=== PATIENT | female | born 1980 | race African-American/Black ===

== ENCOUNTER 2016-10-24 09:59 | Emergency (ER) | payer OTHER ==
[~2016-10-24] VITALS: Ht 149.9 cm; Wt 113.9 kg
[~2016-10-24 09:59] MED LIST: BLM PO; DEPO-PROVER150 MG/ML IM; KEFLEX500 MG PO; PERCOCET 325 MG1 TA2 PO
[2016-10-24 12:57] LABS: ABSOLUTE BASOPHIL COUNT 0.1 /CUMM (0.0-0.2); ABSOLUTE EOSINOPHIL COUNT 0.1 /CUMM (0.0-0.7); ABSOLUTE GRANULOCYTE CT 8.3 /CUMM (1.4-6.5); ABSOLUTE LYMPH COUNT 2.7 /CUMM (1.2-3.4); ABSOLUTE MONOCYTE COUNT 1.1 /CUMM (0.10-0.60); BASOPHIL % 0.6 % (0.0-2.0); EOSINOPHIL % 0.5 % (0-5); GRANULOCYTE % 67.9 % (42.2-75.2); HEMATOCRIT 40.7 % (37-47); MEAN CORPUSCULAR HGB 26.8 PG (27.0-31.0); MEAN CORPUSCULAR HGB CONC 32.5 G/DL (33.0-37.0); MEAN CORPUSCULAR VOLUME 82.4 FL (81.0-99.0); PLATELET COUNT 376 /CUMM (130-400); RBC DISTRIBUTION WIDTH 14.1 % (11.5-14.5); RED BLOOD CELL CT 4.95 /CUMM (4.20-5.40); WHITE BLOOD CELL COUNT 12.2 /CUMM (4.8-10.8)
--- NOTE | 2016-10-24 12:58 | ED GI/GU/ABDOMINAL COMPLAINT ---
History of Present Illness General Chief Complaint: General Adult Stated Complaint: CONSTIPATION X4DAYS Source: patient Exam Limitations: no limitations Vital Signs & Intake/Output Vital Signs & Intake/Output Vital Signs Date Time Temp Pulse Resp B/P Pulse O2 O2 Flow FiO2 Ox Delivery Rate 10/24 1942 98.1 72 18 136/72 98 Room Air 10/24 1723 97.7 86 18 137/78 99 10/24 1014 96.4 108 18 122/84 99 Room Air Allergies Coded Allergies: NO KNOWN ALLERGIES (NO) (02/26/12) Reconcile Medications No Known Home Medications Triage Note: 35 Y/O FEMALE C/O CONSTIPATION X 4 DAYS; HAS GASTRIC BYPASS SURGERY 3 WEEKS AGO AND PT STOPPED TAKING PAIN MEDICATION APPROX 1 WEEK AGO; HAS BEEN TAKING STOOL SOFTENERS AND MIRALAX (YESTERDAY) WITH NO RELIEF. STATES SHE FEELS THE STOOL BUT CANNOT PUSH IT OUT. DENIES URINARY SYMPTOMS. C/O "DISCOMFORT" Triage Nurses Notes Reviewed? yes ? n Is pt currently ? No Onset: Abrupt Duration: day(s): (3-4), constant, getting worse Timing: recent history Location: generalized abdomen Radiation: no radiation No Modifying Factors: none HPI: 35-year-old female comes into emergency room for further evaluation of abdominal pain. Patient reports that 2 weeks ago she had a gastric bypass surgery done by Dr. Rodriguez out of [place]. Patient reports that she's been having some constipation issues for the past week and increased pain over the past few days. Some associated nausea but denies any vomiting. Patient reports that she had a complete gastric bypass. Denies any other associated symptoms. Patient reports that she was straining to go to the bathroom the other day noticed some bright red blood in the stool. (MYRIMA GUILLERMO) Past History Travel History Traveled to [place] past 21 day No Medical History Any Pertinent Medical History? see below for history Neurological: NONE EENT: NONE Cardiovascular: NONE Respiratory: NONE Gastrointestinal: GERD Hepatic: NONE Renal: NONE Musculoskeletal: NONE Psychiatric: NONE Endocrine: obesity Blood Disorders: anemia Cancer(s): NONE BILINGUAL TEACHER AIDE/Reproductive: NONE Surgical History Surgical History: cholecystectomy, R CARPAL TUNNEL Psychosocial History Who do you live with Brother What is your primary language Congolese Tobacco Use: Quit >30 days ago Family History Hx Contributory? No (MYRIAM GUILLERMO) Review of Systems Review of Systems Constitutional: Reports: no symptoms. EENTM: Reports: no symptoms. Respiratory: Reports: no symptoms. Cardiovascular: Reports: no symptoms. GI: Reports: see HPI. Genitourinary: Reports: no symptoms. Musculoskeletal: Reports: no symptoms. Skin: Reports: no symptoms. Neurological/Psychological: Reports: no symptoms. Hematologic/Endocrine: Reports: no symptoms. Immunologic/Allergic: Reports: no symptoms. All Other Systems: Reviewed and Negative (MYRIAM GUILLERMO) Physical Exam Physical Exam General Appearance: well developed/nourished, no apparent distress, alert, awake Head: atraumatic, normal appearance Eyes: Bilateral: normal appearance, EOMI. Ears, Nose, Throat, Mouth: hearing grossly normal, moist mucous membrane Neck: normal inspection, full range of motion Respiratory: normal breath sounds, no respiratory distress Cardiovascular: regular rate/rhythm Gastrointestinal: soft, tenderness Back: normal inspection Extremities: normal range of motion Neurologic/Psych: awake, alert, oriented x 3, normal gait, normal mood/affect Skin: intact, normal color Core Measures ACS in differential dx? No Severe Sepsis Present: No Septic Shock Present: No (MYRIAM GUILLERMO) Progress Differential Diagnosis: AAA, appendicitis, biliary colic, bowel obstruction, colon cancer, cholecystitis, ectopic , pancreatitis, peptic ulcer, PUD/ GERD, perforated viscous, threatened AB, internal hernia, necrotic bowel, Plan of Care: Orders Procedure Date/time Status Enema 10/24 1452 Active Add-on Test (ER Only) 10/24 1419 Active HUMAN BETA HCG SCREEN 10/24 1315 Complete URINE 10/24 1203 Complete URINALYSIS 10/24 1203 Complete LACTIC ACID 10/24 1203 Complete COMPREHENSIVE METABOLIC PANEL 10/24 1203 Complete CBC WITHOUT DIFFERENTIAL 10/24 1203 Complete Laboratory Tests 10/24/16 1900: Urine Color YEL, Urine Clarity CLEAR, Urine pH 6.0, Ur Specific [place] 1.025, Urine Protein 30 H, Urine Ketones >=80, Urine Nitrite NEG, Urine Bilirubin NEG@ ICTO, Urine Urobilinogen 1.0, Ur Leukocyte Esterase NEG, Ur Microscopic SEDIMENT EXAMINED, Urine RBC RARE, Urine WBC 5-10 H, Ur Epithelial Cells MANY H, Urine Mucus FEW, Urine Hemoglobin NEG, Urine Glucose NEG, Urine Test NEGATIVE 10/24/16 1503: Lactic Acid Cancelled 10/24/16 1315: Anion Gap 19 H, Estimated GFR > 60, BUN/Creatinine Ratio 13.3, Glucose 85, Lactic Acid 1.1, Calcium 10.1, Total Bilirubin 0.7, AST 21, ALT 36, Alkaline Phosphatase 87, Total Protein 8.4 H, Albumin 4.2, Globulin 4.2, Albumin/ Globulin Ratio 1.0 L, Total Beta HCG NEGATIVE 10/24/16 1245: CBC w Diff NO MAN DIFF REQ, RBC 4.95, MCV 82.4, MCH 26.8 L, RDW 14.1, MPV 10.0, Gran % 67.9, Lymphocytes % 22.2, Monocytes % 8.8, Eosinophils % 0.5, Basophils % 0.6, Absolute Granulocytes 8.3 H, Absolute Lymphocytes 2.7, Absolute Monocytes 1.1 H, Absolute Eosinophils 0.1, Absolute Basophils 0.1, PUBS MCHC 32.5 L Diagnostic Imaging: Viewed by Me: CT Scan. Discussed w/RAD: CT Scan. Radiology Impression: EXAM TYPE: CAT - CT ABD & PELVIS W ORAL & IV CO EXAMINATION: CT ABDOMEN AND PELVIS WITH CONTRAST CLINICAL INFORMATION: Postop gastric bypass. Abdominal pain. Evaluate for obstruction. Internal hernia. Necrotic bowel. COMPARISON: Prior CT March 2015. TECHNIQUE: Multidetector volumetric imaging was performed of the abdomen and pelvis before and after the IV administration of 95 mL of Optiray 320 intravenous contrast. Sagittal and coronal reformatted images were obtained on the technologist's workstation. DLP: 1109 mGy-cm FINDINGS: LUNG BASES: The visualized lung bases are unremarkable. LIVER, GALLBLADDER, AND BILIARY TREE: The liver is normal in size, shape, and attenuation. No focal hepatic lesion or biliary ductal dilatation is present. Absent with postsurgical changes compatible with cholecystectomy. PANCREAS: Unremarkable. SPLEEN: Unremarkable. ADRENAL GLANDS: Unremarkable. KIDNEYS AND URETERS: The kidneys are normal in size, shape, and attenuation. No hydronephrosis, hydroureter, or calculi seen. No perinephric stranding. BLADDER: Unremarkable. GASTROINTESTINAL TRACT: Postsurgical changes presumably related to the reported gastric bypass surgery. Stomach otherwise unremarkable. Small bowel within normal limits. No small bowel dilatation or bowel wall thickening. Large bowel unremarkable. Appendix normal. ABDOMINAL WALL: There is a persistent supraumbilical abdominal wall hernia containing fat and perhaps small vessels measuring up to 4 cm transverse with an appearance similar to prior. However, the fascia protrusion is more prominent than prior with some bowel extending beneath the fascia. There is less inflammatory changes surrounding the hernia sac containing predominantly fat and perhaps minimal vessels. LYMPH NODES: Normal. VASCULAR: Unremarkable. PELVIC VISCERA: Unremarkable. OSSEOUS STRUCTURES : Unremarkable. IMPRESSION: Postoperative changes consistent with patient's history of Gastric bypass. No evidence of bowel obstruction or bowel inflammation Persistent supraumbilical hernia with slightly increased protrusion of the fascial wall but decreased surrounding reactive inflammatory changes. DICTATED BY: JOY SALDANA MD DATE/TIME DICTATED:10/24/161451 [facility] DATE/TIME TRANSCRIBED:10/24/161451 CONFIDENTIAL, DO NOT COPY WITHOUT APPROPRIATE AUTHORIZATION. <Electronically signed in Other Vendor System> SIGNED BY: JOY SALDANA MD 10/24/16 1535 Initial ED EKG: none Comments: 10/24/2016 8:30:25 PM Patient clinically looks well. Patient is nontoxic-appearing. Patient is in no apparent distress. Patient is resting comfortably in room. Multiple calls were placed to the patient's bariatric surgeon Dr. Rodriguez from [facility] but there were no calls back. Patient had a large bowel movement here after soapsuds enema and feels significantly better and symptoms have resolved. There are no acute findings on the CAT scan. Patient has been reevaluated and observed in the emergency room for 10 hours and continued to remain in no apparent distress with no acute abdomen. Case is discussed with Dr. wesley. Shared decision making. Patient is ready to go home. I stressed to her the importance of contacting her primary care doctor tomorrow as well as contacting her bariatric surgeon. Patient understands and agrees with plan of care. Patient return to the emergency room immediately if any other concerns worsening symptoms. (HERLINDA BECKFORD,MYRIAM) Departure Departure Disposition: HOME OR SELF CARE Condition: Stable Clinical Impression Primary Impression: Abdominal pain Secondary Impressions: Fecal impaction Referrals: [facility], VICK BENITEZ (PCP/Family) Additional Instructions: Call your bariatric surgeon tomorrow. No urinary here in the emergency room. Please return if any concerns worsening symptoms. Take some [id number] MiraLAX at home to help with constipation. Please return immediately if any other concerns worsening symptoms. Please go over all results of today's visit with your primary care doctor. Contact your primary care doctor to let them know you were here in the emergency room. There may be nonspecific findings which may not be related to your visit today here in the emergency room but may require further evaluation and chronic monitoring by your primary care doctor. If you had a laceration today the chance of foreign body always remains. You should follow-up with your primary care doctor for recheck in 3-5 days for a wound check. If you had an x-ray done there is a chance that a fracture could have been missed on initial read and you should follow-up with your primary care doctor for repeat x-rays if symptoms persist. If your blood pressure was elevated here in the emergency room please have rechecked by her primary care doctor within the next 48 hours by your primary care doctor. If you were prescribed a narcotic here in the emergency room or any type of controlled substances you're not allowed to drive while taking this medication or operate any type of heavy machinery. Narcotics can make you feel lightheaded dizziness nausea and can cause constipation. You may need to hot die picker a stool softener. Thank you for choosing [facility] emergency room. Please return to the emergency room immediately if you have any other concerns worsening of symptoms. Departure Forms: Customer Survey General Discharge Information Prescriptions: Current Visit Scripts No Known Home Medications (MYRIAM GUILLERMO) PA/SKULL SPLITTER Co-Sign Statement Statement: ED Attending supervision documentation- [] I saw and evaluated the patient. I have also reviewed all the pertinent lab results and diagnostic results. I agree with the findings and the plan of care as documented in the PA's/SKULL SPLITTER's documentation. [X] I have reviewed the ED Record and agree with the PA's/SKULL SPLITTER's documentation. [] Additions or exceptions (if any) to the PAs/SKULL SPLITTER's note and plan are summarized below: [] (JIAN MAIN,YUE)
--- NOTE | 2016-10-24 15:35 | CT SCAN REPORT ---
EXAMINATION: CT ABDOMEN AND PELVIS WITH CONTRAST CLINICAL INFORMATION: Postop gastric bypass. Abdominal pain. Evaluate for obstruction. Internal hernia. Necrotic bowel. COMPARISON: Prior CT March 2015. TECHNIQUE: Multidetector volumetric imaging was performed of the abdomen and pelvis before and after the IV administration of 95 mL of Optiray 320 intravenous contrast. Sagittal and coronal reformatted images were obtained on the technologist's workstation. DLP: 1109 mGy-cm FINDINGS: LUNG BASES: The visualized lung bases are unremarkable. LIVER, GALLBLADDER, AND BILIARY TREE: The liver is normal in size, shape, and attenuation. No focal hepatic lesion or biliary ductal dilatation is present. Absent with postsurgical changes compatible with cholecystectomy. PANCREAS: Unremarkable. SPLEEN: Unremarkable. ADRENAL GLANDS: Unremarkable. KIDNEYS AND URETERS: The kidneys are normal in size, shape, and attenuation. No hydronephrosis, hydroureter, or calculi seen. No perinephric stranding. BLADDER: Unremarkable. GASTROINTESTINAL TRACT: Postsurgical changes presumably related to the reported gastric bypass surgery. Stomach otherwise unremarkable. Small bowel within normal limits. No small bowel dilatation or bowel wall thickening. Large bowel unremarkable. Appendix normal. ABDOMINAL WALL: There is a persistent supraumbilical abdominal wall hernia containing fat and perhaps small vessels measuring up to 4 cm transverse with an appearance similar to prior. However, the fascia protrusion is more prominent than prior with some bowel extending beneath the fascia. There is less inflammatory changes surrounding the hernia sac containing predominantly fat and perhaps minimal vessels. LYMPH NODES: Normal. VASCULAR: Unremarkable. PELVIC VISCERA: Unremarkable. OSSEOUS STRUCTURES: Unremarkable. IMPRESSION: Postoperative changes consistent with patient's history of Gastric bypass. No evidence of bowel obstruction or bowel inflammation Persistent supraumbilical hernia with slightly increased protrusion of the fascial wall but decreased surrounding reactive inflammatory changes.
[2016-10-24 19:42] VITALS: BP 136/72
== END 2016-10-24 19:42 ==
LOC: ERH 09:59
PROVIDERS: Physician Assistant Medical
DX: K56.41 Fecal impaction (principal)
CPT/HCPCS: 74177; 81001; 81025; 96360

== ENCOUNTER 2017-09-12 14:23 | Emergency (ER) | payer OTHER ==
[~2017-09-12] VITALS: Ht 149.9 cm; Wt 83.5 kg
[2017-09-12 15:41] VITALS: BP 140/90
== END 2017-09-12 17:23 | disposition admitted as inpatient to this hospital (09) ==
LOC: ERH 14:23
DX: M79.642 Pain in left hand (principal); M79.641 Pain in right hand